=== PATIENT | male | born 1955 | race Caucasian/White ===

== ENCOUNTER 2019-12-27 08:38 | Emergency (ER) | payer OTHER, SELFPAY ==
--- NOTE | 2019-12-27 | XR_ITS ---
EXAMINATION: XR ANKLE, LEFT XR FOOT, LEFT CLINICAL INFORMATION: Pain. No trauma. COMPARISON: None TECHNIQUE: AP, lateral, and mortise views of the left ankle and AP, lateral, and oblique views of the left foot. Lateral view of the ankle is included with the foot. FINDINGS: LEFT ANKLE: Soft tissue swelling is present around the ankle with subcutaneous edema. No effusion. Talocrural joint appears well-preserved without significant osteoarthritis. Osseous prominence at the tip of lateral malleolus is likely due to an old ligamentous injury. No fractures. No talar osteochondral lesions are identified. Small enthesopathic spur is present at the plantar fascial origin on the calcaneus. LEFT FOOT: There is cortical irregularity at the medial margin of the first metatarsal base which is concerning for a fracture. Recommend correlation for point tenderness in this region. There is an adjacent osseous intermetatarseum at the dorsal margin of the proximal first intermetatarsal space. Bases best seen on the lateral view, measuring 1.2 cm in diameter. Tarsometatarsal joints are otherwise unremarkable. There is an old healed fracture of the fifth metatarsal neck/shaft with a chronic posttraumatic excrescence laterally. Soft tissues are swollen at the foot. Small plantar calcaneal enthesopathic spur. Joints appear relatively well-preserved without significant joint space narrowing. No marginal osteophytes. IMPRESSION: 1. Focal cortical irregularity medial margin of the first metatarsal base which raises the possibility of a nondisplaced fracture. Recommend correlation for point tenderness in this region. 2. Soft tissue swelling and subcutaneous edema around the ankle without evidence of acute underlying osseous abnormalities. 3. Old healed fifth metatarsal fracture. 4. Small plantar calcaneal enthesopathic spur.
[2019-12-27 08:51] VITALS: BP 130/71; PULSE 82; RESP 17; TEMP 36.4; O2SAT 99; BMI 23.7
--- NOTE | 2019-12-27 09:45 | ED.GENADULT ---
HPI - General Adult General Chief complaint: Extremity Problem Stated complaint: LEFT ANKLE PAIN Time Seen by Provider: 12/27/19 09:25 Source: patient Mode of arrival: ambulatory Limitations: no limitations History of Present Illness HPI narrative: Left ankle/foot pain intermittent for weeks to months. Intermittent joint pain and swelling for months. Seen by PCP 2 weeks ago and had labs including inflammatory markers, lyme panel and gout panel all negative. Has appt with property and equipment clerk 01/16 for further workup. Worsening pain in LLE for the last few weeks. Patient tells me he has been doing more activity and weight bearing on his LLE in the past few weeks. prior to this he was doing low impact exercise such as swimming and now he is doing more outdoor walking so he thinks this may be making things worse. 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 Onset (ago): week(s) Location: lower extremity Radiation: non-radiation Severity: moderate Quality: sharp Pain Consistency: constant Relieving factors: immobilization Exacerbating factors: movement Associated symptoms: denies other symptoms Related Data Previous Rx's Medication Instructions Recorded hydrocodone-acetaminophen 1 tab PO Q8H PRN #10 tab 12/27/19 naproxen 500 mg PO BID #20 tab 12/27/19 Allergies Allergy/AdvReac Type Severity Reaction Status Date / Time No Known Allergies Allergy Verified 12/27/19 08:55 [No Known Allergies*] Review of Systems Review of Systems: Yes all other systems are reviewed and are negative Constitutional: Constitutional: Reports no additional constitutional complaints, Denies body ache(s), Denies chills, Denies fever(s), Denies headache(s) and Denies weakness Eyes: Eyes: Reports no additional eye complaints and Denies change in vision ENT: Reports system reviewed and no additional complaints, except as documented, Denies dizziness, Denies headache(s), Denies nasal congestion, Denies nasal discharge and Denies neck pain Cardiovascular: Cardiovascular: Reports no additional cardiovascular complaints, Denies chest pain, Denies leg edema and Denies dyspnea Respiratory: Respiratory: Reports no additional respiratory complaints, Denies cough and Denies dyspnea Gastrointestinal: Gastrointestinal: Reports no additional gastrointestinal complaints, Denies abdominal pain, Denies diarrhea, Denies nausea and Denies vomiting Genitourinary: Genitourinary: Denies urinary incontinence Musculoskeletal: Musculoskeletal: Reports no additional musculoskeletal complaints, Denies back pain, Reports arthralgias, Reports joint swelling, Denies neck pain, Denies numbness and Denies tingling Integumentary/Breasts: Skin/Breast: Reports system reviewed and no additional complaints, except as docu and Denies rash Neurologic: Reports system reviewed and no additional complaints, except as documented, Denies Abnormal speech present, Denies dizziness, Denies headache(s), Denies numbness, Denies tingling and Denies weakness PMFSH Past Medical History Attestation statement: The following information was validated with the patient. Source: obtained from family and nursing notes reviewed Medical History Osteosarcoma Surgical History History of amputation History of amputation Social History Social History Alcohol intake: unknown Smoking Status: Unknown if ever smoked Use of substances other than those prescribed or required for medical reasons: Unknown Advance Directives: Yes Advance Directives Information Provided: Yes Advance Directives on File: No Physical Exam Vital Signs and I&O and Narrative: Vital Signs and I&O: Vital Signs Temp 97.5 F 12/27/19 08:51 Pulse 82 12/27/19 08:51 Resp 17 12/27/19 08:51 BP 130/71 12/27/19 08:51 Pulse Ox 99 12/27/19 08:51 Intake & Output 12/26/19 12/27/19 12/27/19 18:59 06:59 18:59 Weight 86.183 kg Body Mass Index 23.7 Const: General: cooperative, healthy appearing, comfortable and no acute distress Orientation/consciousness: patient oriented x3 Limitations: no limitations HENMT: Head: Yes normal to inspection Ears: hearing grossly normal bilaterally General nose exam: Normal external nose present Face and sinus: Yes normal facial exam Mouth: Normal oral and palatal mucosa present Throat: Yes posterior oropharynx normal Eyes: General: appearance normal, both eyes and all related structures Pupils: Equal, round and reactive pupils present Neck: Neck: Yes normal visual inspection Chest: Chest palpation & inspection: normal inspection of the chest Resp: Effort & Inspection: normal respiratory effort Auscultation: clear to auscultation bilaterally Cardio: Rate: regular rate Rhythm: regular rhythm Peripheral pulses: Peripheral pulses 2+ throughout GI: Inspection: Yes normal to inspection Palpation (GI): Soft to palpation and nontender Auscultation: normal bowel sounds Back/Spine/Pelvis: Thoracic/Lumbar Spine: thoracic and lumbar spine normal to inspection Skin: General skin exam: no rashes or lesions noted Neuro: General: patient oriented x3, no focal motor deficits and normal sensation to monofilament Cranial nerves: Yes Equal, round and reactive pupils present Cognition (Neuro): normal cognition Speech: No Abnormal speech present Gait exam (Neuro): Normal gait present Motor exam (neuro): 5/5 motor strength present throughout Extrem: General: Yes normal to inspection Left lower extremity: normal to inspection, full ROM, normal capillary refill, edema (mild edema over medial and lateral ankle) Details: non-pitting and ankle Details: normal to inspection, normal ROM and achilles tendon exam abnormal (mild tenderness. negative coats test) Details: no step-off noted; no ecchymosis Medical Decision Making MDM Narrative Medical decision making narrative: Left foot and ankle pain for the last few weeks with increased and weight-bearing activity. X-ray represents a nondisplaced fracture of the 1st metatarsal base. Patient was placed in a postoperative shoe. He has crutches from home. We discussed supportive care at home and follow-up with orthopedics outpatient. Reviewed worrisome signs and symptoms and when to return to the emergency department. Comfortable with discharge home. Imaging Data foot xray: Attestation: I personally reviewed and interpreted this imaging study as follows: Radiologist's impression: X-ray shows focal cortical irregularity in the medial margin of the 1st metatarsal base which likely represents a nondisplaced fracture. Patient has some soft tissue swelling and subcutaneous edema around the ankle with no evidence of underlying osseous abnormality. Old healed 5th metatarsal fracture. Small plantar calcaneal spur. Discharge Plan Discharge Clinical Impression: Fracture Patient Disposition: Home, Self-Care Instructions: Foot Fracture in Adults (ED) Additional Instructions: Ice, elevation, limit weight bearing with crutches Use hard soled shoe for the next 1-2 weeks Follow-up with orthopedics as discussed. Prescriptions: New naproxen 500 mg tablet 500 mg PO BID Qty: 20 RF: 0 hydrocodone-acetaminophen 5-300 mg tablet 1 tab PO Q8H PRN (Reason: pain) Qty: 10 RF: 0 Referrals: Ranulfo Avila MD [Physician] - 2 days Interventions: ED Discharge Assessment Last Done: 12/27/19 10:49 Discharge Date/Time: 12/27/19 10:54
--- NOTE | 2019-12-27 09:51 | PC.NURSE ---
pt requesed urinal, urinal provided. pt states he is independent with urinal.
--- NOTE | 2019-12-27 10:27 | PC.NURSE ---
provider at bedside for re eval
== END 2019-12-27 10:54 | disposition home or self-care (01) ==
PROVIDERS: Emergency Provider Internal Medicine
DX: S92.902A Unspecified fracture of left foot, initial encounter for closed fracture (principal); X50.9XXA Other and unspecified overexertion or strenuous movements or postures, initial encounter; Y93.01 Activity, walking, marching and hiking; Y92.9 Unspecified place or not applicable; Y99.9 Unspecified external cause status
CPT/HCPCS: 73610; 73630; 99283; 99284